=== PATIENT | male | born 1970 | race Caucasian/White ===

== ENCOUNTER 2021-11-14 15:24 | Emergency (ER) | payer OTHER ==
[~2021-11-14] VITALS: Ht 180.3 cm; Wt 18.0 kg
[2021-11-14] MEDS ORDERED: AMOX/K CLAV875 M1 PO (19:08)
[2021-11-14 19:22] VITALS: BP 156/110
== END 2021-11-14 19:28 | disposition home or self-care (01) | DRG 605 ==
LOC: ED 15:24
PROC: 0HQ1XZZ Repair Face Skin, External Approach (ICD-10-PCS; principal; 2021-11-14)
PROC: 0CQ0XZZ Repair Upper Lip, External Approach (ICD-10-PCS; 2021-11-14)
DX: S01.81XA Laceration without foreign body of other part of head, initial encounter (principal); S01.511A Laceration without foreign body of lip, initial encounter; Y04.0XXA Assault by unarmed brawl or fight, initial encounter; Y92.149 Unspecified place in prison as the place of occurrence of the external cause